=== PATIENT | male | born 1985 | race Caucasian/White ===

== ENCOUNTER 2019-03-05 12:35 | Emergency (ER) | payer OTHER | END 2019-03-05 14:39 | disposition home or self-care (01) | LOC: FTE 12:35 | DX: S29.012A Strain of muscle and tendon of back wall of thorax, initial encounter (principal); M72.2 Plantar fascial fibromatosis; X58.XXXA Exposure to other specified factors, initial encounter; Y92.9 Unspecified place or not applicable | CPT/HCPCS: 99282; Z7502 ==